=== PATIENT | male | born 1935 | race Caucasian/White ===

== ENCOUNTER 2016-11-23 21:15 | Emergency (ER) | payer OTHER ==
[2016-11-23 21:20] VITALS: O2SAT 94
--- NOTE | 2016-11-23 21:28 | CPEKG ---
Heart Rate: 64 RR Interval: 938 P-R Interval: 176 QRSD Interval: 120 QT Interval: 476 QTC Interval: 491 P [place]: 70 QRS [place]: 67 T Wave [place]: -84 EKG Severity - ABNORMAL ECG - EKG Impression: SINUS RHYTHM EKG Impression: INCOMPLETE LEFT BUNDLE BRANCH BLOCK Electronically Signed By: Everardo Bowie 23-Nov-2016 21:53:34
--- NOTE | 2016-11-23 21:30 | EDPHY ---
H & P Stated Complaint: central CP, SOB, N without V Source: Patient Exam Limitations: No limitations - Personal History Current Tetanus/Diphtheria Vaccine: Unsure Current Tetanus Diphtheria and Acellular Pertussis (TDAP): Unsure Tetanus Vaccine Date: <10 years - Medical/Surgical History Hx Asthma: No Hx Chronic Respiratory Disease: No Hx Diabetes: No Hx Cardiac Disease: Yes Hx Renal Disease: No Hx Cirrhosis: No Hx Alcoholism: No Hx HIV/AIDS: No Hx Splenectomy or Spleen Trauma: No Other PMH: PPPM/ICD, AMI, Vtach. hypercholestermia. bilateral hernia repair. tonsillectomy. appendectomy. colitis. PNA - Social History Smoking Status: Former smoker Time Seen by Provider: 11/23/16 21:23 HPI/ROS: CHIEF COMPLAINT: Substernal and epigastric pain, nausea HISTORY OF PRESENT ILLNESS: The patient presents to the ED for evaluation of substernal and epigastric pain that began at 1.5 hours ago after eating a large meal. The patient described a moderate epigastric and substernal pain. There was no radiation of the pain. The patient did have some nausea and attempted to vomit but was unable to. The patient denies any history of exertional chest pain or shortness of breath. The patient does have a history of ischemic cardiomyopathy, V-tach, status post stent, status post AICD. The patient did have 2 alcoholic beverages tonight which is not unusual. The patient is currently asymptomatic. REVIEW OF SYSTEMS: A comprehensive 10 point review of systems is otherwise negative aside from elements mentioned in the history of present illness. (Everardo Bowie) - Physical Exam Exam: General Appearance: Alert, no distress Eyes: Pupils equal and round no pallor or injection ENT, Mouth: Mucous membranes moist Respiratory: There are no retractions, lungs are clear to auscultation Cardiovascular: Regular rate and rhythm Gastrointestinal: Minimal epigastric tenderness to palpation Neurological: A&O, normal motor function, normal sensory exam, normal cranial nerves Skin: Warm and dry, no rashes Musculoskeletal: Neck is supple nontender Extremities: symmetrical, full range of motion (Everardo Bowie) Constitutional: Initial Vital Signs Temperature (C) 36.8 C 11/23/16 21:16 Heart Rate 67 11/23/16 21:16 Respiratory Rate 20 11/23/16 21:16 Blood Pressure 127/93 H 11/23/16 21:16 O2 Sat (%) 94 11/23/16 21:16 O2 Delivery Mode Room Air Allergies/Adverse Reactions: No Known Allergies Allergy (Unverified 10/06/10 11:27) Home Medications: Medication Instructions Recorded Lisinopril [Zestril 5 mg (*)] 5 mg PO DAILY 02/15/16 Amiodarone HCl [Pacerone (*)] 200 mg PO BID #120 tab 02/17/16 Allopurinol [Allopurinol 300 MG 300 mg PO HS 03/26/16 (RX)] Atorvastatin Calcium [Lipitor 40 40 mg PO DAILY 03/26/16 mg (*)] Escitalopram Oxalate [Lexapro 10 10 mg PO HS 03/26/16 MG] Multivitamins [Multivitamin (*)] 1 each PO DAILY 03/26/16 Pantoprazole Sodium [Protonix 40mg 40 mg PO DAILY #30 tab 03/29/16 (*)] Aspirin [Aspirin 325 mg (*)] 0.5 tab PO HS 04/12/16 Acetaminophen [Tylenol 325mg (*)] 650 mg PO Q4HRS PRN #0 tab 04/16/16 Benzocaine/Menthol 15/4 [Cepacol 1 ea PO PRN PRN #0 lozenge 04/16/16 Lozenge] Doxycycline Hyclate [Vibramycin 100 mg PO BID #14 capsule 04/16/16 100 MG (*)] Magnesium Hydroxide [Milk of 30 ml PO DAILY PRN #0 udcup 04/16/16 Magnesia (*)] Metoprolol Tartrate [Lopressor 100 50 mg PO BID #60 tab 04/16/16 mg (*)] Multivitamins [Multivitamin (*)] 1 each PO DAILY #0 tab 04/16/16 guaiFENesin [Robitussin Oral 200 mg PO Q4HRS PRN #0 udcup 04/16/16 Liquid (*)] Medical Decision Making - Diagnostics EKG Interpretation: EKG: Complete interpretation has been separately recorded in the [facility] archive. Summary impression: Sinus rhythm, incomplete left bundle branch block , T-wave inversions noted in the inferior lateral leads unchanged from prior EKG. (Everardo Bowie) Imaging Results: Imaging Impressions Chest X-Ray 11/23/16 21:30 Impression: 1. Pacemaker without pneumothorax. 2. Residual linear scarring or subsegmental atelectasis in the left lower lobe without definite pneumonia. Abdomen Ultrasound 11/23/16 22:20 Impression: 1. Gallbladder sludge. No cholelithiasis or biliary ductal dilation. 2. Infrarenal abdominal aortic aneurysm measuring 4.3 x 4.6 cm. 3. Limited evaluation of the pancreas and right kidney. Findings and recommendations discussed with Emergency Department physician, Dr. Angel Ashraf at 23:10 hour, 11/23/2016. Final report concurs with initial preliminary interpretation. ED Course/Re-evaluation: I reviewed the patient's past medical records. The patient presents to the ED after an episode of chest and epigastric pain. The patient did have some nausea but no vomiting. He currently is asymptomatic. Patient's EKG is unchanged from his baseline. I had a discussion with the patient about the plan. I do feel that his symptoms are most consistent with a mild GI source. He does understand that we cannot fully exclude progressive coronary artery disease. The patient was offered hospitalization this evening however would like to go home. He is amenable to obtaining a 4 hour troponin in the emergency department. The patient will undergo a right upper quadrant ultrasound for evaluation of possible cholelithiasis. The patient will be turned over to Dr. Ashraf at shift change with a plan to check a troponin at midnight and follow up on the pending right upper quadrant ultrasound. 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 Miguel Ángel Holt tomorrow. (Everardo Bowie) [id number]: I did take over this patient's care at 10:00 p.m. shift change. Patient pending his 2nd troponin at midnight. He also is getting a right upper quadrant ultrasound shows gallbladder sludge but no acute inflammation. Also has noted on the ultrasound shows infrarenal AAA. 4.3 cm x 4.6 cm. This is unchanged from previous imaging. I will notify the patient that about this aneurysm. Will re-evaluate him shortly after gets 2nd troponin make sure does not have any further chest pain and repeat EKG is unchanged from his previous EKG. If he has a normal 2nd troponin, normal nonischemic EKG and no chest pain allowed to go home to follow up with Cardiology outpatient. He understands and is comfortable this plan. 1227AM: Repeat EKG repeat EKG time 12:14 a.m. this is sinus rhythm rate of 61 incomplete left bundle-branch block present. T-wave abnormality seen in inferior leads. When I compare this EKG to his previous EKG today is unchanged. When I compare this EKG to previous EKG dated 04/12/2016 again unchanged morphology. 2nd troponin pending. I did re-evaluate the patient is resting comfortably no acute distress. Denies chest pain. 2nd troponin negative allowed to go home. He understands follow-up with Cardiology Dr. Del Rosario tomorrow. Call for an appointment. Patient also understands strict return precautions if develops chest pain, nausea, shortness of breath return to the ER. His abdomen remained soft no nausea at this time. I did go over his elevated LFTs. He understands follow-up with his primary care doctor and Dr. Holt about this. They are slightly elevated more than normal. No evidence of acute cholecystitis seen on ultrasound. 0122AM: Repeat troponin negative. No chest pain. Patient is safe for discharge. (Angel Ashraf) Differential Diagnosis: Differential diagnosis considered includes acute coronary syndrome, pericarditis , pancreatitis, esophageal spasm, gastroesophageal reflux (Everardo Bowie) - Data Points Laboratory Results: Laboratory Results 11/23/16 21:50 11/23/16 21:50 11/24/16 11/23/16 11/23/16 00:16 21:50 21:50 WBC 6.99 10^3/uL 10^3/uL (3.80-9.50) RBC 4.14 10^6/uL L 10^6/uL (4.40-6.38) Hgb 13.5 g/dL L g/dL (13.7-17.5) Hct 39.1 % L % (40.0-51.0) MCV 94.4 fL fL (81.5-99.8) MCH 32.6 pg pg (27.9-34.1) MCHC 34.5 g/dL g/dL (32.4-36.7) RDW 14.8 % % (11.5-15.2) Plt Count 216 10^3/uL 10^3/uL (150-400) MPV 10.0 fL fL (8.7-11.7) Neut % (Auto) 69.1 % % (39.3-74.2) Lymph % (Auto) 18.3 % % (15.0-45.0) Crosby % (Auto) 9.9 % % (4.5-13.0) Eos % (Auto) 2.0 % % (0.6-7.6) Baso % (Auto) 0.4 % % (0.3-1.7) Nucleat RBC Rel Count 0.0 % % (0.0-0.2) Absolute Neuts (auto) 4.83 10^3/uL 10^3/uL (1.70-6.50) Absolute Lymphs (auto) 1.28 10^3/uL 10^3/uL (1.00-3.00) Absolute Monos (auto) 0.69 10^3/uL 10^3/uL (0.30-0.80) Absolute Eos (auto) 0.14 10^3/uL 10^3/uL (0.03-0.40) Absolute Basos (auto) 0.03 10^3/uL 10^3/uL (0.02-0.10) Absolute Nucleated RBC 0.00 10^3/uL 10^3/uL (0-0.01) Immature Gran % 0.3 % % (0.0-1.1) Immature Gran # 0.02 10^3/uL 10^3/uL (0.00-0.10) Sodium 137 mEq/L mEq/L (134-144) Potassium 3.9 mEq/L mEq/L (3.5-5.2) Chloride 102 mEq/L mEq/L (97-110) Carbon Dioxide 19 mEq/l L mEq/l (22-31) Anion Gap 16 mEq/L mEq/L (8-16) BUN 15 mg/dL mg/dL (7-23) Creatinine 0.9 mg/dL mg/dL (0.7-1.3) Estimated GFR > 60 Glucose 114 mg/dL H mg/dL (70-100) Calcium 9.3 mg/dL mg/dL (8.5-10.4) Total Bilirubin 2.1 mg/dL H mg/dL (0.1-1.4) Conjugated Bilirubin 0.6 mg/dL H mg/dL (0.0-0.5) Unconjugated Bilirubin 1.5 mg/dL H mg/dL (0.0-1.1) AST 240 IU/L H IU/L (17-59) ALT 139 IU/L H IU/L (21-72) Alkaline Phosphatase 157 IU/L H IU/L (38-126) Troponin I < 0.012 ng/mL ng/mL < 0.012 ng/mL ng/mL (0-0.034) (0-0.034) Total Protein 6.9 g/dL g/dL (6.3-8.2) Albumin 4.4 g/dL g/dL (3.5-5.0) Lipase 301.0 IU/L H IU/L (23-300) Departure - Departure Disposition: Home, Routine, Self-Care Clinical Impression: Chest pain Qualifiers: Chest pain type: unspecified Qualified Code(s): R07.9 - Chest pain, unspecified Condition: Good Instructions: Chest Pain (ED) Additional Instructions: 1. Based upon the testing done in the Emergency Department today we see no evidence of a heart attack. 2. We are unable to fully exclude coronary artery disease based upon the testing available in the Emergency Department. 3. For this reason, we would like you to be seen by cardiology for consideration of additional testing. 4. Please contact your [facility] Dr. Miguel Ángel Holt in the morning to discuss a possible follow-up visit. Their offices are typically open from 8:30am -5pm M-F. 5. Please return to the Emergency Department immediately for any recurrent chest pain, difficulty breathing or other concerns. Referrals: Miguel Ángel Holt MD [Medical Doctor] - As per Instructions
[2016-11-23 22:06] LABS: % IMMATURE GRANULYOCYTES 0.3 % (0.0-1.1); ABSOLUTE IMMATURE GRANULOCYTES 0.02 10^3/uL (0.00-0.10); ADD DIFF? NO; ADD MORPH? NO; ADD SCAN? NO; ATYPICAL LYMPHOCYTE FLAG 10 (0-99); FRAGMENT RBC FLAG 0 (0-99); HEMATOCRIT 39.1 % (40.0-51.0); HEMOGLOBIN 13.5 g/dL (13.7-17.5); LEFT SHIFT FLG 0 (0-99); LIPEMIA HEMOLYSIS FLAG 90 (0-99); MEAN CELL HEMOGLOBIN 32.6 pg (27.9-34.1); MEAN CELL HEMOGLOBIN CONCENTR. 34.5 g/dL (32.4-36.7); MEAN CELL VOLUME 94.4 fL (81.5-99.8); PLATELET CLUMPS FLAG 0 (0-99); PLATELET COUNT 216 10^3/uL (150-400); RED BLOOD CELL COUNT 4.14 10^6/uL (4.40-6.38); RED CELL DISTRIBUTION WIDTH 14.8 % (11.5-15.2)
[2016-11-23 22:18] LABS: ANION GAP 16 mEq/L (8-16); CALCIUM 9.3 mg/dL (8.5-10.4); CARBON DIOXIDE 19 mEq/l (22-31); CHLORIDE 102 mEq/L (97-110); CREATININE 0.9 mg/dL (0.7-1.3); GLOMERULAR FILTRATION RATE > 60; GLUCOSE 114 mg/dL (70-100); POTASSIUM 3.9 mEq/L (3.5-5.2); SODIUM 137 mEq/L (134-144)
[2016-11-23 22:30] LABS: TROPONIN I < 0.012 ng/mL (0-0.034)
[2016-11-23 22:39] LABS: ALANINE AMINOTRANSFERASE 139 IU/L (21-72); ALBUMIN 4.4 g/dL (3.5-5.0); ALKALINE PHOSPHATASE 157 IU/L (38-126); ASPARTATE AMINOTRANSFERASE 240 IU/L (17-59); BILIRUBIN,TOTAL 2.1 mg/dL (0.1-1.4); BILIRUBIN-CONJUGATED 0.6 mg/dL (0.0-0.5); BILIRUBIN-UNCONJUGATED 1.5 mg/dL (0.0-1.1); TOTAL PROTEIN 6.9 g/dL (6.3-8.2)
--- NOTE | 2016-11-24 00:15 | CPEKG ---
Heart Rate: 61 RR Interval: 984 P-R Interval: 172 QRSD Interval: 122 QT Interval: 476 QTC Interval: 480 P [place]: 63 QRS [place]: 60 T Wave [place]: -65 EKG Severity - ABNORMAL ECG - EKG Impression: SINUS RHYTHM EKG Impression: LEFT BUNDLE BRANCH BLOCK EKG Impression: PROBABLE INFERIOR INFARCT WITH LBBB Electronically Signed By: Angel Ashraf 24-Nov-2016 06:15:32
[2016-11-24 00:49] VITALS: RESP 18
[2016-11-24 01:26] VITALS: BP 139/66; PULSE 61; TEMP 97.7
== END 2016-11-24 01:39 | disposition home or self-care (01) ==
DX: R07.9 Chest pain, unspecified (principal); Z87.891 Personal history of nicotine dependence

== ENCOUNTER → 2017-03-18 | Outpatient (CLI) | payer OTHER | LOC: FIMAGING 11:37 | PROVIDERS: ATTEND Internal Medicine Interventional Cardiology | DX: I47.2 Ventricular tachycardia (principal); J98.6 Disorders of diaphragm; Z79.899 Other long term (current) drug therapy ==

== ENCOUNTER → 2017-07-27 | Outpatient (CLI) | payer OTHER | LOC: FIMAGING 10:18 | PROVIDERS: ATTEND Internal Medicine | DX: K83.8 Other specified diseases of biliary tract (principal); K76.0 Fatty (change of) liver, not elsewhere classified; R16.0 Hepatomegaly, not elsewhere classified; I71.4 Abdominal aortic aneurysm, without rupture ==

== ENCOUNTER → 2017-08-26 | Outpatient (CLI) | payer OTHER ==
[~2017-08-26] MED LIST: IOPAMIDOL (ISOVUE-370) 150 ML BTL IV ONE
== END ==
LOC: FIMAGING 13:25
PROVIDERS: ATTEND Internal Medicine Cardiovascular Disease
DX: I71.4 Abdominal aortic aneurysm, without rupture (principal); I72.3 Aneurysm of iliac artery; R59.0 Localized enlarged lymph nodes; I50.22 Chronic systolic (congestive) heart failure; I73.9 Peripheral vascular disease, unspecified
CPT/HCPCS: 75635; Q9967

== ENCOUNTER 2018-01-20 07:30 | Day surgery (SDC) | payer OTHER ==
[~2018-01-20 07:30] MED LIST changes: +ACETAMINOPHEN 325 MG TAB PO PRN; +ASPIRIN EC 325 MG TAB PO ONE; +DIAZEPAM 5 MG TAB PO ONE; +FAMOTIDINE 20 MG TAB PO ONE; -IOPAMIDOL (ISOVUE-370) 150 ML BTL IV ONE; +NITROGLYCERIN 0.4 MG BTL SL PRN; +NS 1,000 ML IV SCH; +TEMAZEPAM 15 MG CAP PO PRN; +diphenhydrAMINE 25 MG CAP PO ONE
[2018-01-20 08:08] LABS: PLATELET COUNT 145 10^3/uL (150-400)
[2018-01-20 08:16] LABS: INR 1.22 (0.83-1.16); PROTIME(PATIENT) 15.6 SEC (12.0-15.0)
[2018-01-20] MEDS ORDERED: ASPIRIN EC 325 MG TAB PO ONE (08:16)
[2018-01-20] MEDS ORDERED: diphenhydrAMINE 25 MG CAP PO ONE (08:16)
[2018-01-20] MEDS ORDERED: MIDAZOLAM 2 MG/2 ML VIAL ONE ×2 (08:17→09:19)
[2018-01-20] MEDS ORDERED: DIAZEPAM 5 MG TAB ONE (08:17)
[2018-01-20] MEDS ORDERED: fentaNYL 100 MCG/2 ML INJ ONE ×2 (08:18→09:19)
[2018-01-20] MEDS ORDERED: LIDOCAINE 1% 300 MG/30 ML SDV ONE (09:19)
[2018-01-20] MEDS ORDERED: VERAPAMIL 5 MG/2 ML VIAL ONE (09:19)
[2018-01-20] MEDS ORDERED: IOPAMIDOL (ISOVUE-370) 150 ML BTL IV ONE (09:19)
[2018-01-20] MEDS ORDERED: HEPARIN 10,000 UNIT/10 ML MDV (1,000 UNIT/ML) ONE (09:19)
--- NOTE | 2018-01-20 09:21 | PDPROPOC ---
Sedation Plan of Care Sedation Plan of Care: vital signs stable, mental status noted, patient educated of risks, benefits, alternatives, patient can tolerate sedation ASA Classification: ASA 2 Planned drugs: fentanyl, midazolam Mallampati Score: Class 1 Mallampati Reference Image: Patient passed 3-3-2 rule?: Yes
--- NOTE | 2018-01-20 09:21 | PDHPUP ---
History & Physical Update H&P update statement: This history and physical update is based on an assessment of the patient which was completed after admission or registration (within 24 hours), but prior to the surgery/procedure. H&P update: H&P reviewed & patient examined, no change in patient's condition since H&P completed
--- NOTE | 2018-01-20 10:57 | PDDXCAT ---
Diagnostic Cath Note - . Date: 01/20/18 Pit Supervisor: Jonathon High-risk criteria on non-invasive testing: severe resting left ventricular dysfunction (LVEF<35%) - Procedure Access: right wrist Procedure: left heart catheterization, coronary angiography, left ventriculogram , right heart catheterization - Materials Left Heart Cath size: 5F Left Heart Cath materials: standard multipack (JL4, JR4, pigtail) Right Heart Cath size: 5F Right Heart Cath materials: PWP catheter - Findings-Left Heart Catheterization LM: Unobstructed LAD: Large vessel: Reaching the apex with left to right collaterals. Luminal irregularities not greater than 10% LCX: Large vessel: Left to right collaterals: Luminal irregularities not more than 10% RCA: 100% occluded proximally. Vessel reconstitutes left right. 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 Moderate reduction LV systolic function ejection fraction 40% with regional wall motion abnormalities. Mild pulmonary hypertension. Plan: Aggressive medical therapy. Patient Problems: Problems Problem Status Onset Ventricular tachycardia Acute Ischemic cardiomyopathy Acute Coronary artery disease Acute Lower GI bleed Acute Bradycardia Acute Pneumonia Acute
--- NOTE | 2018-01-20 11:58 | CPEKG ---
Test Reason : OPEN Blood Pressure : / mmHG Vent. Rate : 059 BPM Atrial Rate : 059 BPM P-R Int : 203 ms QRS Dur : 130 ms QT Int : 479 ms P-R-T Axes : 061 064 -65 degrees QTc Int : 475 ms Sinus rhythm Left bundle branch block Confirmed by Sawyer Alexander ([id number]) on 01/20/2018 11:57:57 AM Referred By: Confirmed By:Sawyer Alexander
--- NOTE | 2018-01-20 12:02 | CPEKG ---
Test Reason : OPEN Blood Pressure : / mmHG Vent. Rate : 059 BPM Atrial Rate : 000 BPM P-R Int : 086 ms QRS Dur : 135 ms QT Int : 551 ms P-R-T Axes : 066 062 -62 degrees QTc Int : 546 ms Ventricular-paced complexes premature ventricular complexes Confirmed by Sawyer Alexander ([id number]) on 01/20/2018 12:02:14 PM Referred By: Confirmed By:Sawyer Alexander
--- NOTE | 2018-01-20 17:23 | ECHO ---
[email or web address] [address] [address] Main: [phone] Fax: Transesophageal Echocardiography Name: MADAN BOYER MR#: [id number] Study Date: 01/20/2018 Study Time: 08:59 AM Date of : 1935 Age: 82 year(s) Height: ( ) Weight: ( ) BSA: Gender: Male Examination: AGATHA Indication: Pre Cath Image Quality: Contrast: Requested by: Miguel Ángel Holt Heart Rate: Rhythm: BP: / Procedure Staff Component Engineer: Jesús Figueroa RDCS Reading Physician: Miguel Ángel Holt MD Requesting Provider: AGATHA Exam Details Conclusions: No pericardial effusion. Reduced LV systolic function ejection fraction 50%. Inferior akinesis. Moderate to severe mitral regurgitation with left atrial enlargement. Measurements: Chambers Valvular Assessment AV/MV Valvular Assessment TV/PV Normal Normal Normal Name Value Range Name Value Range Name Value Range Visual EF: 50 % EF Range: 50-55 % Additional Measurements: Findings: Left Ventricle: Low normal left ventricular systolic function. The ejection fraction is estimated to be 50-55 %. The ejection fraction is visually estimated to be 50 %. Right Ventricle: There is a pacemaker lead noted in the right ventricle. Left Atrium: The left atrium is moderately to severely dilated. An agitated saline study was performed and was negative for intracardiac shunting. Right Atrium: The right atrium is normal in size. Patient: MADAN BOYER Study Date: 01/20/2018 Page 1 of 2 08:59 AM Mitral Valve: The mitral valve is normal in appearance. Moderate to severe mitral regurgitation. Aortic Valve: The aortic valve is tri-leaflet and functions normally. Trivial aortic valve regurgitation. Tricuspid Valve: The tricuspid valve appears normal. Mild tricuspid regurgitation is present. Pulmonic Valve: The pulmonic valve is normal in appearance and function. Aorta: There is mild intimal thickening noted in the descending aorta.. The aorta is normal. l1n (No Signature Object) Patient: MADAN BOYER Study Date: 01/20/2018 Page 2 of 2 08:59 AM [id number]
== END 2018-01-20 14:21 | disposition home or self-care (01) ==
LOC: FCATH 07:30
PROVIDERS: ATTEND Internal Medicine Interventional Cardiology
PROC: B2111ZZ Fluoroscopy of Multiple Coronary Arteries using Low Osmolar Contrast (ICD-10-PCS; principal; 2018-01-20)
PROC: B246ZZ4 Ultrasonography of Right and Left Heart, Transesophageal (ICD-10-PCS; principal; 2018-01-20)
PROC: B2151ZZ Fluoroscopy of Left Heart using Low Osmolar Contrast (ICD-10-PCS; principal; 2018-01-20)
PROC: 4A023N8 Measurement of Cardiac Sampling and Pressure, Bilateral, Percutaneous Approach (ICD-10-PCS; principal; 2018-01-20)
DX: I50.22 Chronic systolic (congestive) heart failure (principal); I25.10 Atherosclerotic heart disease of native coronary artery without angina pectoris; I25.82 Chronic total occlusion of coronary artery; I25.2 Old myocardial infarction; I25.5 Ischemic cardiomyopathy; I34.0 Nonrheumatic mitral (valve) insufficiency; I27.21 Secondary pulmonary arterial hypertension; I36.0 Nonrheumatic tricuspid (valve) stenosis; I71.4 Abdominal aortic aneurysm, without rupture
CPT/HCPCS: C1769; J1644; J2250; J3010; Q9967

== ENCOUNTER → 2018-02-18 | Outpatient (CLI) | payer OTHER | LOC: FIMAGING 10:19 | PROVIDERS: ATTEND Internal Medicine Cardiovascular Disease | DX: I47.2 Ventricular tachycardia (principal); Z79.899 Other long term (current) drug therapy; Z95.810 Presence of automatic (implantable) cardiac defibrillator ==

== ENCOUNTER → 2018-03-08 | Outpatient (CLI) | payer OTHER | LOC: FIMAGING 10:22 | PROVIDERS: ATTEND Physician Assistant Medical | DX: R05 Cough (principal); R91.8 Other nonspecific abnormal finding of lung field; I50.23 Acute on chronic systolic (congestive) heart failure ==

== ENCOUNTER 2018-03-30 07:59 | Observation (INO) | payer OTHER ==
[2018-03-30] MEDS ORDERED: NS 1,000 ML IV ONE (08:04)
[2018-03-30] MEDS ORDERED: diphenhydrAMINE 25 MG CAP PO ONE (08:04)
[2018-03-30] MEDS ORDERED: BACITRACIN IRRIGATION/NS 50,000 UNITS/1,000 ML BTL IRR ONE (08:04)
[2018-03-30] MEDS ORDERED: DIAZEPAM 5 MG TAB PO ONE (08:04)
[2018-03-30] MEDS ORDERED: ceFAZolin 2 GM/DEXTROSE 100 ML IV ONE (08:04)
[2018-03-30 08:58] LABS: PLATELET COUNT 157 10^3/uL (150-400)
[2018-03-30] MEDS ORDERED: LIDOCAINE 1% 300 MG/30 ML SDV ONE (09:13)
[2018-03-30] MEDS ORDERED: IOPAMIDOL (ISOVUE-300) 50 ML VIAL ONE (09:13)
[2018-03-30] MEDS ORDERED: MIDAZOLAM 2 MG/2 ML VIAL ONE ×4 (09:14→14:19)
[2018-03-30] MEDS ORDERED: fentaNYL 100 MCG/2 ML INJ ONE ×2 (09:14→12:49)
[2018-03-30] MEDS ORDERED: BUPIVACAINE 0.5% 30 ML SDV ONE (09:14)
[2018-03-30] MEDS ORDERED: LIDO/EPI 1% **for epidural** 30 ML SDV ONE (09:14)
[2018-03-30 09:26] LABS: INR 1.15 (0.83-1.16); PROTIME(PATIENT) 14.9 SEC (12.0-15.0)
--- NOTE | 2018-03-30 11:21 | CPEKG ---
Test Reason : OPEN Blood Pressure : / mmHG Vent. Rate : 064 BPM Atrial Rate : 000 BPM P-R Int : 081 ms QRS Dur : 125 ms QT Int : 515 ms P-R-T Axes : 000 012 -86 degrees QTc Int : 532 ms Ventricular-paced complexes Left bundle branch block Confirmed by Roly Canas ([id number]) on 03/30/2018 11:20:57 AM Referred By: Confirmed By:Roly Canas
--- NOTE | 2018-03-30 12:10 | PDPROPOC ---
Sedation Plan of Care Sedation Plan of Care: vital signs stable, mental status noted, patient educated of risks, benefits, alternatives, patient can tolerate sedation ASA Classification: ASA 2 Planned drugs: fentanyl, midazolam Mallampati Score: Class 2 Mallampati Reference Image: Patient passed 3-3-2 rule?: Yes
[2018-03-30] MEDS ORDERED: TEARS/DEXTRAN 70/HYPROMELLOSE 15 ML OPHT.BTL EACHEYE PRN (15:03)
--- NOTE | 2018-03-30 17:04 | CPIP ---
DATE OF PROCEDURE: 03/30/2018 Upgrade of an implantable cardioverter defibrillator to a biventricular implantable cardioverter defi brillator. INDICATION: The patient is a very pleasant 82-year-old male who has a history of CAD with a previous cardiomyopathy. Over the years, he has had gradual decline in his ejection fraction now below 35%. He has [place] [employer] Functional Class 2/3 symptoms with a left bundle branch block with a QRS duration of greater than 125 milliseconds. He is referred for an upgrade of his existing sing le-chamber ICD to a biventricular device. PROCEDURE: 1. Explantation of existing single-chamber implantable cardioverter defibrillator. 2. Implantation of a new right atrial lead. 3. Implantation of a new coronary sinus lead. 4. Implantation of a new biventricular implantable cardioverter defibrillator. TECHNIQUE: Following informed consent and in the fasting state, the patient was brought to the [facility] catheterization laboratory. The left chest was prepped and draped in the usual sterile fashion. Prior to the procedure, prophylactic antibiotics were administered and a venogram was performed, iden tifying a widely patent axillary subclavian system. At this point, 2% lidocaine was infiltrated in t he skin overlying the existing ICD. Using a #10 blade, a 4 cm incision was made. Using blunt and sh tabitha dissection, the ICD capsule was identified, which was opened sharply. The area around the device was then dissected to expand the pocket and free up the existing leads. At this point, we used 2 se parate sticks in the modified Seldinger technique to get access to the axillary vein at the level of the first rib. Two individual 0.035 J-wires were positioned. Using the first of these J-wires, a 6- Turkmen sheath was placed. This allowed us to position the right atrial lead in the right atrial appe ndage under fluoroscopic guidance. The sheath was torn away. The lead screwed into place and tested with excellent capture and sensing. The lead was then secured to the ICD pocket floor using 0 Ethib ond. Using the remaining J-wire, a 4-Turkmen sheath was placed. This allowed us to place a long 0.03 5 J-wire in the inferior vena cava. The [employer] wide guide [facility] Under fluoroscopy, this was passed into the right atrium. The camera was moved GUO, which allo wed easy visualization of the region of the coronary sinus. Using an angled Glidewire, we were easil y able to cannulate the coronary sinus. Once the coronary sinus was cannulated with the angled [place] wire, the guide was then placed deeply within the coronary sinus. At this point, we performed a veno gram. Unfortunately, we were not able to identify a sufficient lateral vein coming off the main yvonne nary sinus. There was a large posterolateral vein, however, that seemed suitable. Multiple attempts were then made at cannulating the posterolateral vein. We were not successful with the wide guide c atheter. Therefore, we used 135 degree guide catheter to easily cannulate this coronary sinus. We c annulated the posterolateral vein with an angled Glidewire. This allowed us to place a [place] cathete r deep within the posterolateral vein and eventually cannulate the posterolateral vein with our guide catheter. At this point, the guide catheter was left and the remaining equipment was removed from t he coronary sinus. A Mailman wire was brought to the field under fluoroscopy. This was passed into a superior branch of this posterolateral vein. The [employer] lead was then brought to the field and passed over this wire deep into the superior branch. This was tested with excellent capture and sen sing. The guide catheter was then slit away. The coronary sinus lead was then secured to the ICD po cket using 0 Ethibond. All leads were then retested confirming excellent capture and sensing. The a ntibiotic-soaked sponge was removed from the pocket. Pocket was irrigated copiously. The device was brought to the field. All leads were identified by serial number and fixed to the device according to vice president of recruiting guidelines. The device and the redundant portions of leads were then placed in the p ocket. The device was then secured to the pocket using 0 silk. The pocket was then closed in 3 laye rs initially using 2 layers of interrupted suture with 2-0 and 3-0 Vicryl and finally running Strataf ix for the skin. Steri-Strips and a dry dressing were applied. COMPLICATIONS: None. DEVICE INFORMATION: The newly implanted defibrillator is a [employer] Quadra Assura referenc e number [id number], serial #[id number]. The atrial lead is a [employer] [id number], 52 cm lead ser ial number [id number]. The newly implanted coronary sinus lead is [facility] rikki faustin ce #[id number]-75, serial number [id number]. Existing right ventricular lead was implanted in October of 2010 and is a [employer]ata [id number] 58 cm lead, serial number [id number]. In the atrium capture 0.5 V at 0.5 msec with a lead impedance of 562 ohms and sensed P waves of 3.5 mV. In the right ventricle, capture 1 V at 0.5 msec. Sensed R-waves of 10.9 mV, lead impedance of 457 ohms. The coronary sinus capture 0.6 V at 0.5 msec with sensed R-waves 11.9 mV, lead impedance of 954 ohms. Defibrillation testing was no t performed. DISPOSITION: The patient will be recovered in the CVC. He will be transferred to the floor, [facility] overnight, monitored, and I anticipate discharge home in the morning. /[id number]
[2018-03-30] MEDS: CARVEDILOL 3.125 MG TAB PO SCH (20:49)
[2018-03-30] MEDS ORDERED: POTASSIUM CL 20 MEQ TAB PO SCH (21:00)
[2018-03-31 04:37] LABS: PLATELET COUNT 122 10^3/uL (150-400)
[2018-03-31] MEDS ORDERED: LEVOTHYROXINE 150 MCG TAB PO SCH (06:00)
[2018-03-31] MEDS: CARVEDILOL 3.125 MG TAB PO SCH (08:49)
[2018-03-31] MEDS ORDERED: LISINOPRIL 10 MG TAB PO SCH (09:00)
[2018-03-31] MEDS ORDERED: SPIRONOLACTONE 25 MG TAB PO SCH (09:00)
[2018-03-31] MEDS ORDERED: ASPIRIN 81 MG CHEWABLE TAB PO SCH (09:00)
[2018-03-31] MEDS ORDERED: ALLOPURINOL 300 MG TAB PO SCH (09:00)
[2018-03-31] MEDS ORDERED: AMIODARONE HCL 200 MG TAB PO SCH (09:00)
[2018-03-31] MEDS ORDERED: POTASSIUM CL 20 MEQ TAB PO SCH (09:00)
[2018-03-31] MEDS ORDERED: TORSEMIDE 20 MG TAB PO SCH (10:00)
--- NOTE | 2018-03-31 10:39 | GDS ---
DISCHARGE DIAGNOSES: 1. Upgrade from a single-chamber implantable cardioverter defibrillator to a biventricular implantable cardioverter defibrillator. 2. History of coronary artery disease with known chronically occluded right coronary artery. 3. Ischemic cardiomyopathy with an ejection fraction of 35%. 4. Congestive heart failure with class 3 [employer] symptoms. 5. History of ventricular tachycardia, on amiodarone. HOSPITAL COURSE: For a detailed H and P, please see prior dictation. Briefly, the patient is an 82-year-old male with a history of coronary artery disease, ischemic cardiomyopathy with ejection fraction of 35%, sustained ventricular tachycardia, on amiodarone, and chronic systolic congestive heart failure, who presented to our office with progressive heart failure symptoms. He had a wide QRS, and therefore, it was thought that he would benefit from a BiV device. He was admitted to the hospital electively on March 30, and his single-chamber ICD was upgraded to a biventricular ICD by Dr. Jaden Nelson. That evening, he developed a hematoma around the site, which was stable the following morning. He had some mild discomfort over his ICD site, without any significant pain. He was monitored on telemetry and is currently ventricularly paced with PVC's. His chest x-ray the day of discharge is negative for pneumothorax. His device was interrogated prior to discharge as well and is functioning properly. His H/ H did drop the following day without any change in the size of his hematoma. PHYSICAL EXAMINATION: GENERAL: Patient appears in no acute distress. VITALS: Blood pressure 119/66, heart rate 60, oxygen saturation of 95% on room air, afebrile. LUNGS: Clear to auscultation. No wheezes, rhonchi, or crackles auscultated. CARDIAC: Regular rate and rhythm. CHEST WALL: His ICD site is clean and intact, without any evidence of hematoma or infection. DISCHARGE MEDICATIONS: Lisinopril 10 mg daily, potassium chloride 20 mEq b.i.d. , Demadex 20 mg daily, spironolactone 25 mg daily, amiodarone 200 mg daily, allopurinol 150 mg daily, aspirin 81 mg daily, Coreg 3.125 mg b.i.d., Synthroid 125 mcg daily, multivitamin daily. PLAN: The patient is currently stable and ready for discharge home. He has been given ICD instructions. He will follow up at [facility] on 04/07 at 9 a.m. for an ICD interrogation and wound check. Greater than 30 minutes was spent coordinating the patient's care today. Addendum: Prior to d/c he become hypotensive while sitting in a chair with a blood pressure of 76/50 and HR of 30BPM which was likely related to frequent PVC 's. He was off tele monitor at that time. He complained of fatigue and small change in his vision. He was placed in trendelenburg and his pressure improved. A limited echo was negative for pericardial effusion. His hematoma is stable. ICD interrogation was unremarkable. He will be given 250ml of NS and see how he responds. A repeat H/H is pending. Likely d/c later today with a reduction in his hypertensive medications. /[id number]/MODL MTDD
--- NOTE | 2018-03-31 11:07 | CPEKG ---
Test Reason : OPEN Blood Pressure : / mmHG Vent. Rate : 060 BPM Atrial Rate : 060 BPM P-R Int : 239 ms QRS Dur : 109 ms QT Int : 420 ms P-R-T Axes : 222 -84 093 degrees QTc Int : 420 ms Atrial-ventricular dual-paced rhythm Confirmed by Roly Canas ([id number]) on 03/31/2018 11:07:18 AM Referred By: Confirmed By:Roly Canas
--- NOTE | 2018-03-31 11:08 | CPEKG ---
Test Reason : OPEN Blood Pressure : / mmHG Vent. Rate : 063 BPM Atrial Rate : 063 BPM P-R Int : 191 ms QRS Dur : 112 ms QT Int : 411 ms P-R-T Axes : 104 -87 095 degrees QTc Int : 421 ms Atrial-sensed ventricular-paced complexes Confirmed by Roly Canas ([id number]) on 03/31/2018 11:07:40 AM Referred By: Confirmed By:Roly Canas
[2018-03-31] MEDS ORDERED: NS 250 ML IV SCH (11:15)
--- NOTE | 2018-03-31 12:24 | ASDISCHSUM ---
Discharge Information Plan Status:Home with No Needs Medically Cleared to Leave:03/30/2018 Discharge Date:03/30/2018 CM D/C Disposition:Home, Routine, Self-Care ADT D/C Disposition:Home, Routine, Self-Care Projected Discharge Date:03/30/2018 Transportation at D/C: Discharge Delay Reason: Follow-Up Date:03/30/2018 Discharge Slot: Final Diagnosis: Placement Information Patient Contact Information Contact Name:LORENZA Relationship:[place] Address: Work Phone: City: [facility] Phone: State/Zip Code: Email: Financial Information Financial Class:Medicare Advantage Plans Primary Plan Desc:[employer] MEDICARE ADV Primary Plan Number:[id number] Secondary Plan Desc: Secondary Plan Number: Assessment Information LACE LACE Length of stay for Answers: Less than 1 day current admission Acuity / Level of Answers: No Care: Did the patient have an inpatient admission? Comorbidities - select Answers: Previous myocardial all that apply infarction # of Emergency department Answers: 0 visits in the last 6 months Score: 1 Date Signed: 03/31/2018 12:23 PM Electronically Signed By:Cathy Strong RN Intervention Information
[2018-03-31 14:56] VITALS: BP 100/59
--- NOTE | 2018-03-31 15:20 | CPEKG ---
Test Reason : OPEN Blood Pressure : / mmHG Vent. Rate : 060 BPM Atrial Rate : 000 BPM P-R Int : 223 ms QRS Dur : 111 ms QT Int : 556 ms P-R-T Axes : 074 -55 -05 degrees QTc Int : 556 ms Atrial-ventricular dual-paced complexes Confirmed by Roly Canas ([id number]) on 03/31/2018 3:20:26 PM Referred By: Confirmed By:Roly Canas
--- NOTE | 2018-03-31 17:42 | ECHO ---
[email or web address] [place] [id number] Main: [phone] Fax: Transthoracic Echocardiogram Name: MADAN BOYER MR#: [id number] Study Date: 03/31/2018 Study Time: 11:29 AM Date of : 1935 Age: 82 year(s) Height: ( ) Weight: ( ) BSA: Gender: Male Examination: Limited Echo Indication: r/o pericardial effusion; s/p pacemaker Image Quality: Adequate Contrast: Requested by: Edtih Mendoza BP: 94 mmHg/53 mmHg Heart Rate: Rhythm: Indication: r/o pericardial effusion; s/p pacemaker Procedure Staff Security Monitor: Vero Maldonado [facility] Reading Physician: Da Nelson MD Requesting Provider: Conclusions: This is a limited echocardiogram performed to evaluate for possible pericardial effusion in this patient post pacemaker presenting with hypotension . There is a trivial anterior pericardial effusion with no evidence of tamponade. Pacemaker is noted in the right atrium and right ventricle. Left ventricle is mildly dilated with global hypokinesis and ejection fraction of 30-35% which is unchanged. Measurements: Chambers Valvular Assessment AV/MV Valvular Assessment TV/PV Normal Normal Normal Name Value Range Name Value Range Name Value Range Continued Measurements: Findings: Right Ventricle: Pacemaker noted in apex of RV. Pericardium: Trivial anterior pericardial effusion. (No Signature Object) Patient: MADAN BOYER Study Date: 03/31/2018 Page 1 of 1 11:29 AM [id number]
== END 2018-03-31 15:35 | disposition home or self-care (01) ==
LOC: FCATH 07:59 → F3N 15:02 → F2W 17:12
PROVIDERS: ADMIT Internal Medicine Cardiovascular Disease; ATTEND Internal Medicine Cardiovascular Disease
PROC: 0JH Subcutaneous Tissue and Fascia, Insertion (ICD-10-PCS; principal; 2018-03-30)
PROC: 02HL3MZ Insertion of Cardiac Lead into Left Ventricle, Percutaneous Approach (ICD-10-PCS; principal; 2018-03-30)
PROC: 02H63KZ Insertion of Defibrillator Lead into Right Atrium, Percutaneous Approach (ICD-10-PCS; principal; 2018-03-30)
PROC: 0JPT0PZ Removal of Cardiac Rhythm Related Device from Trunk Subcutaneous Tissue and Fascia, Open Approach (ICD-10-PCS; principal; 2018-03-30)
DX: I25.5 Ischemic cardiomyopathy (principal); I44.7 Left bundle-branch block, unspecified; I25.10 Atherosclerotic heart disease of native coronary artery without angina pectoris; I50.22 Chronic systolic (congestive) heart failure
CPT/HCPCS: 33225; 33241; 33249; 71045; 71046; 93005; 93308; C1769; C1882; C1898; C1900; G0378; J0690; J1200; J1644; J2250; J3010; Q9967

== ENCOUNTER 2018-07-01 06:21 | Day surgery (SDC) | payer OTHER ==
--- NOTE | 2018-06-28 17:18 | GHP ---
[f rep st] PREOP HISTORY AND PHYSICAL DATE OF ADMISSION: 07/01/2018 CHIEF COMPLAINT: Left inguinal hernia. HISTORY OF PRESENT ILLNESS: This is an 82-year-old male who presents for surgical evaluation of a le ft inguinal hernia, as well as an umbilical hernia. The patient reports that it has been present for several months. It has gotten progressively larger and causes occasional discomfort. He does repor t that he can reduce both hernias easily. PAST MEDICAL HISTORY: Abdominal aortic aneurysm, acute mitral valve insufficiency, chronic systolic heart failure, atherosclerosis of coronary arteries, depressive disorder, essential hypertension, gou t. PAST SURGICAL HISTORY: Appendectomy, excision of basal cell carcinoma, defibrillator implant, previo us inguinal hernia repair, excision of squamous cell carcinoma. FAMILY HISTORY: Noncontributory. MEDICATIONS: Allopurinol, amiodarone, aspirin 81 mg, Coreg, levothyroxine, losartan, Torsemide, mult ivitamin. SOCIAL HISTORY: This patient is a former smoker and drinks alcohol every day. REVIEW OF SYSTEMS: A 10-point review of systems performed and is negative, aside from what is in the HPI. PHYSICAL EXAMINATION: GENERAL: Well appearing, well dressed, no acute distress. HEENT: Normocepha lic, atraumatic, mucous membranes are moist, no gross hearing deficits, PERRLA. CARDIAC: Regular ra te and rhythm, no clicks, murmurs, or rubs. CHEST: Clear to auscultation bilaterally, no rales, rho nchi, or wheezes. ABDOMEN: Soft, nontender. Reducible umbilical hernia present. GENITOURINARY: T here is a reducible hernia in the left groin. MUSCULOSKELETAL: Moves all extremities equally x4. N EUROLOGIC: Alert and oriented x3. PSYCHIATRIC: Appropriate mood and affect. IMPRESSION/PLAN: This is an 82-year-old male with a significant cardiac history who presents for roberta gical evaluation of a left inguinal hernia and umbilical hernia. Discussed all risks and options. R isks of surgery include, but are not limited to, infection, bleeding, recurrence, damage to surroundi ng structures, including spermatic cord, bowel, bladder, heart attack, and . Patient understand s and wishes to proceed. We willplanfor laparoscopic, possible open left inguinal hernia repair, as well as an open umbilical hernia repair. The patient has received cardiac clearance. /[id number]/MODL
[2018-07-01] MEDS ORDERED: ceFAZolin 2 GM/DEXTROSE 100 ML IV ONE (06:36)
[2018-07-01] MEDS ORDERED: LR 1,000 ML IV ONE (06:38)
[2018-07-01] MEDS ORDERED: BUPIVACAINE 0.5% 30 ML SDV ONE (06:55)
--- NOTE | 2018-07-01 07:56 | PDANEPAE ---
ANE History of Present Illness 82 yo for lap h DHARMESH Past Medical History - Cardiovascular History Hx Hypertension: Yes Hx Arrhythmias: Yes Hx Chest Pain: No Hx Coronary Artery / Peripheral Vascular Disease: Yes Hx CHF / Valvular Disease: Yes Hx Palpitations: No Cardiovascular History Comment: HTN. CAD. CHF. VTACH WITH BIVAICD. AAA. MITRAL REGURG. HYPERLIPIDEMIA. EDEMA USES TORSEMIDE PRN. FOLLOWED BY [facility] - Pulmonary History Hx COPD: No Hx Asthma/Reactive Airway Disease: No Hx Recent Upper Respiratory Infection: No Hx Oxygen in Use at Home: No Hx Sleep Apnea: No Sleep Apnea Screening Result - Last Documented: Positive Pulmonary History Comment: KATHRYN TRIGGERS - Neurologic History Hx Cerebrovascular Accident: No Hx Seizures: No Hx Dementia: No - Endocrine History Hx Diabetes: No Endocrine History Comment: HYPOTHYROIDISM - Renal History Hx Renal Disorders: No - Liver History Hx Hepatic Disorders: No - Neurological & Psychiatric Hx Hx Neurological and Psychiatric Disorders: No - Cancer History Hx Cancer: Yes Cancer History Comment: SQUAMOUS CELL REMOVED - Congenital Disorder History Hx Congenital Disorders: No - GI History Hx Gastrointestinal Disorders: Yes Gastrointestinal History Comment: OCC CONSTIPATION USES SENNA-S. HX OF COLONOSCOPY FOR GI BLEED - Other Health History Other Health History: WEARS GLASSES. GOUT - Chronic Pain History Chronic Pain: No - Surgical History Prior Surgeries: 03/30/18 ICD CHANGED AT [facility]. DOUBLE HERNIA 20+ YRS AGO. 03/26 COLONOSCOPY WITH GATOF. 10/15/10 ICD PLACED WITH CARO. TONSILLECTOMY. STANTON BARROSO Review of Systems Review of Systems: - Exercise capacity METS (RN): 4 METS - Pacemaker Pacemaker Type: Permanent Pacer/Defib Pacemaker Torch Straightener And Heater: [employer] Pacemaker Model: 3369-40Q Pacemaker Mode: DDDR Pacemaker Set Rate: 60 Date Pacemaker Last Checked: 04/07/18 ANE Patient History - Allergies Allergies/Adverse Reactions: No Known Allergies Allergy (Verified 06/29/18 16:39) - Home Medications Home Medications: Allopurinol [Allopurinol 300 MG (RX)] 01/13/18 [Last Taken 06/30/18] Amiodarone HCl [Pacerone (*)] 01/13/18 [Last Taken 07/01/18] Aspirin [Aspirin 81mg (*)] 01/13/18 [Last Taken 06/29/18] Carvedilol [Coreg (*)] 01/13/18 [Last Taken 07/01/18] Levothyroxine [Synthroid 150 mcg (*)] 01/13/18 [Last Taken 07/01/18] Tears/Dextran 70/Hypromellose [Natural Balance Tears (*)] PRN 01/13/18 [Last Taken 07/01/18] Torsemide [Demadex] PRN 03/23/18 [Last Taken 06/30/18] Losartan Potassium 06/29/18 [Last Taken 07/01/18] Multivitamins [Multivitamin (*)] 06/29/18 [Last Taken 06/29/18] Senna-S Tablet 06/29/18 [Last Taken 06/30/18] - NPO status NPO Since - Liquids (Date): 07/01/18 NPO Since - Liquids (Time): 05:30 NPO Since - Solids (Date): 06/30/18 NPO Since - Solids (Time): 17:00 - Smoking Hx Smoking Status: Former smoker - Family Anes Hx Family Hx Anesthesia Complications: NONE ANE Labs/Vital Signs - Vital Signs Blood Pressure: 122/64 Heart Rate: 61 Respiratory Rate: 16 O2 Sat (%): 95 Height: 5 ft 6.93 in Weight: 74.389 kg ANE Physical Exam - Airway Neck exam: FROM Mallampati Score: Class 2 Mouth exam: normal dental/mouth exam - Pulmonary Pulmonary: no respiratory distress - Cardiovascular Cardiovascular: regular rate and rhythym - ASA Status ASA Status: III ANE Anesthesia Plan Anesthesia Plan: general endotracheal anesthesia
[2018-07-01] MEDS ORDERED: fentaNYL 100 MCG/2 ML INJ ONE (08:10)
[2018-07-01] MEDS ORDERED: PROPOFOL/EMULSION 500 MG/50 ML BOTTLE IV ONE (08:10)
[2018-07-01] MEDS ORDERED: DEXAMETHASONE 4 MG/ML VIAL ONE (08:12)
[2018-07-01] MEDS ORDERED: ROCURONIUM 50 MG/5 ML VIAL ONE (08:12)
[2018-07-01] MEDS ORDERED: ONDANSETRON 4 MG/2 ML VIAL ONE (08:12)
[2018-07-01] MEDS ORDERED: ALBUTEROL 3 ML DEYVIAL IH PRN (09:33)
[2018-07-01] MEDS ORDERED: fentaNYL 100 MCG/2 ML INJ IVP PRN (09:33)
[2018-07-01] MEDS ORDERED: ONDANSETRON 4 MG/2 ML VIAL IVP PRN (09:33)
[2018-07-01] MEDS ORDERED: NALOXONE HCL 0.4 MG/ML INJ IVP PRN (09:33)
[2018-07-01] MEDS ORDERED: oxyCODONE IR 5 MG TAB PO PRN (09:33)
--- NOTE | 2018-07-01 10:03 | POSTOPPROG ---
Post Op Note Date of Operation: 07/01/18 Surgeon: Homer Cardona Mobile Device Engineer: Rebecca Anesthesiologist: Antoine Anesthesia: GET(General Endotracheal) Pre-op Diagnosis: LIH, umbilical hernia Post-op Diagnosis: same Indication: same Procedure: Lap LIH repair with mesh, exploration of R, open umbilical hernia repair w/ Findings: Indirect LIH, umbilical varix Inf/Abcess present in the surg proc area at time of surgery?: No Depth: Organ Space EBL: Minimal Specimen(s): Umbilical hernia sac
[2018-07-01] MEDS ORDERED: oxyCODONE IR 5 MG TAB ONE (11:02)
--- NOTE | 2018-07-01 12:16 | POSTANESTH ---
Post Anesthetic Evaluation Cardiovascular Status: Normal, Stable Respiratory Status: Normal, Stable Level of Consciousness/Mental Status: Can Participate in Eval Pain Control: Adequate, Prn Tx Ordered Nausea/Vomiting Control: Adequate, Prn Tx Ordered Complications Possibly Related to Anesthesia: None Noted
[2018-07-01 12:57] VITALS: BP 124/68
--- NOTE | 2018-07-08 11:15 | GOP ---
[f rep st] OPERATIVE REPORT DATE OF OPERATION: 07/01/2018 SURGEON: Homer Cardona MD TEXTILE CONVERTER: Vijaya Fernandez NP. ANESTHESIOLOGIST: Dr. Rebecca Fleming M.D. PREOPERATIVE DIAGNOSIS: 1. Umbilical hernia. 2. Left inguinal hernia. POSTOPERATIVE DIAGNOSIS: 1. Umbilical hernia. 2. Left inguinal hernia. PROCEDURE PERFORMED: 1. Laparoscopic left inguinal hernia repair with mesh with exploration of the right. 2. Open umbilical hernia with mesh. FINDINGS: Patient was found to have a large indirect left inguinal hernia and umbilical hernia sac w ith some varices around the umbilicus. ESTIMATED BLOOD LOSS: Negligible. DESCRIPTION OF PROCEDURE: The patient was taken to the operating room where he received a satisfacto ry general endotracheal anesthesia by Dr. Fleming. He was placed in supine position, prepped and hattie ped in the usual sterile fashion. An infraumbilical incision was made and dissection was carried down to the fascia. The umbilical elier ia sac was dissected free from surrounding skin and subcutaneous tissue. The sac was opened at the fa scial level. There appeared to be varices in the umbilical sac which were ligated with 3-0 Vicryl sut ure ligatures. A subfascial space was created. A small piece of Marlex mesh was placed subfascially a nd secured in place with 0 Surgilon mattress sutures. The defect was closed directly with 0 Surgilon [id number] sutures. The defect itself was only 1.5 cm. Farther distally, a second incision was made in the rectus sheath. A subfascial tunnel was developed in the preperitoneal space which was dissected free with a balloon dissector that was replaced with C O2 insufflation trocar. Two other trocars were placed in the midline under direct vision. Gray liga ment was exposed bilaterally. The cords were mobilized bilaterally. Indirect sac was dissected free f rom the cord structures and reduced. A Covidien polyester mesh patch was placed and was anchored in p lace with AbsorbaTack, securing it to Gray ligament, to the lacunar ligament, to the anterior abdom inal wall, and the lateral abdominal wall outside the internal ring. Hemostasis was assured. The righ t side was explored, with no evidence of hernia being found on that side and no significant indirect sac. Trocars were removed under direct vision. Trocar sites were closed with 0 Vicryl for the fascia, 4-0 Monocryl subcuticular stitch for the skin. The umbilical site was closed with 3-0 Vicryl for the subcutaneous tissue and 4-0 Monocryl subcuticular stitch for the skin. All layers were infiltrated w ith 0.5% Marcaine. COMPLICATIONS: None. /[id number]/MODL
== END 2018-07-01 13:35 | disposition home or self-care (01) ==
LOC: FSGY 06:21
PROVIDERS: ATTEND Surgery
DX: K42.9 Umbilical hernia without obstruction or gangrene (principal); K40.90 Unilateral inguinal hernia, without obstruction or gangrene, not specified as recurrent
CPT/HCPCS: C1727; C1781; J0690; J1100; J2405; J2704; J3010

== ENCOUNTER → 2018-09-28 | Outpatient (CLI) | payer OTHER | LOC: FIMAGING 08:13 | PROVIDERS: ATTEND Internal Medicine Interventional Cardiology | DX: R18.8 Other ascites (principal); R06.02 Shortness of breath ==

== ENCOUNTER → 2018-10-13 | Outpatient (CLI) | payer OTHER | LOC: FIMAGING 11:40 ==